=== PATIENT | female | born 1940 | race Caucasian/White ===

== ENCOUNTER 2021-09-05 13:12 | Inpatient (IN) ==
[2021-09-05] MEDS ORDERED: Furosemide 40 MG TABLET PO PRN (16:48)
[2021-09-05] MEDS ORDERED: diazePAM 2 MG TABLET PO PRN (16:48)
[2021-09-05] MEDS ORDERED: Dextrose 4 GM Chewable Tablets PO PRN ×2 (16:53)
[2021-09-05] MEDS ORDERED: *HR* Dextrose 50 % in Water (Syg) 50 ML SYRINGE IVP PRN (16:53)
[2021-09-05] MEDS ORDERED: D5% in Water 1,000 ML IVC PRN (16:53)
[2021-09-05] MEDS: carvediloL 6.25 MG TABLET PO SCH (18:43)
[2021-09-05] MEDS ORDERED: Insulin DETEMIR 100 UNIT/ML per UNIT SUBQ ONE (21:00)
[2021-09-05] MEDS: Budesonide/Formoterol 160/4.5 1 PUFF INH IH SCH (22:02)
[2021-09-05] MEDS: Apixaban 5 MG TABLET PO SCH (22:17)
[2021-09-05] MEDS: Gabapentin 300 MG CAPSULE PO SCH (22:17)
[2021-09-05] MEDS: Insulin LISPRO 300 UNITS/3 ML VIAL SUBQ SCH (22:36)
[2021-09-06] MEDS: Insulin LISPRO 300 UNITS/3 ML VIAL SUBQ SCH ×4 (08:22→20:53)
[2021-09-06] MEDS: *HR* Amiodarone 200 MG TABLET PO SCH (08:26)
[2021-09-06] MEDS: Venlafaxine XR (24 HR) 75 MG CAP.ER.24H PO SCH (08:26)
[2021-09-06] MEDS: carvediloL 6.25 MG TABLET PO SCH ×2 (08:26→17:00)
[2021-09-06] MEDS: Cholecalciferol (D-3) 1,000 UNIT (25MCG) TABLET PO SCH (08:27)
[2021-09-06] MEDS: Apixaban 5 MG TABLET PO SCH ×2 (08:27→20:53)
[2021-09-06] MEDS: Cyanocobalamin (B-12) 1,000 MCG TABLET PO SCH (08:27)
[2021-09-06] MEDS: Linaclotide [Linzess] 145 MCG Capsule PO SCH (08:28)
[2021-09-06 08:51] LABS: Basophils # 0.1 K/mcL (0.0-0.2); Eosinophils # 0.3 K/mcL (0.0-0.6); Eosinophils % 4.8 %; Hemoglobin 12.1 g/dL (11.5-15.4); Immature Granulocytes % 0.4 % (0-4); Lymphocytes % 38.4 %; Mean Corpuscular HGB Conc 31.8 g/dL (31.6-35.5); Mean Corpuscular Hemoglobin 31.8 pg (28.0-33.3); Mean Platelet Volume 11.2 fL (9.4-12.4); Monocytes # 0.5 K/mcL (0.0-1.3); Monocytes % 9.4 %; Neutrophils # 2.4 K/mcL (1.6-8.9); Red Cell Distribution Width 13.9 % (11.5-14.5); White Blood Count 5.2 K/mcL (4.3-11.1)
[2021-09-06 08:54] LABS: Platelet Count 96 K/mcL (140-400)
[2021-09-06] MEDS: Budesonide/Formoterol 160/4.5 1 PUFF INH IH SCH ×2 (09:23→22:24)
[2021-09-06] MEDS: Gabapentin 300 MG CAPSULE PO SCH (20:52)
[2021-09-06] MEDS: Insulin DETEMIR 100 UNIT/ML X5UNITS SUBQ SCH (20:53)
[2021-09-07] MEDS: Insulin LISPRO 300 UNITS/3 ML VIAL SUBQ SCH ×4 (08:05→19:44)
[2021-09-07] MEDS: Cholecalciferol (D-3) 1,000 UNIT (25MCG) TABLET PO SCH (08:12)
[2021-09-07] MEDS: Cyanocobalamin (B-12) 1,000 MCG TABLET PO SCH (08:12)
[2021-09-07] MEDS: Venlafaxine XR (24 HR) 75 MG CAP.ER.24H PO SCH (08:13)
[2021-09-07] MEDS: Linaclotide [Linzess] 145 MCG Capsule PO SCH (08:13)
[2021-09-07] MEDS: *HR* Amiodarone 200 MG TABLET PO SCH (08:13)
[2021-09-07] MEDS: carvediloL 6.25 MG TABLET PO SCH ×2 (08:13→17:25)
[2021-09-07] MEDS: Apixaban 5 MG TABLET PO SCH ×2 (08:13→19:43)
[2021-09-07 08:40] LABS: Basophils # 0.1 K/mcL (0.0-0.2); Basophils % 1.2 %; Eosinophils # 0.3 K/mcL (0.0-0.6); Hematocrit 38.3 % (35.3-44.9); Hemoglobin 12.2 g/dL (11.5-15.4); Immature Granulocytes % 0.4 % (0-4); Lymphocytes # 1.9 K/mcL (0.6-4.6); Lymphocytes % 38.3 %; Mean Corpuscular HGB Conc 31.9 g/dL (31.6-35.5); Mean Corpuscular Hemoglobin 31.9 pg (28.0-33.3); Mean Corpuscular Volume 100.3 fL (83.0-100.0); Mean Platelet Volume 11.4 fL (9.4-12.4); Monocytes # 0.5 K/mcL (0.0-1.3); Monocytes % 10.3 %; Neutrophils # 2.2 K/mcL (1.6-8.9); Red Blood Count 3.82 M/mcL (3.82-4.97); Red Cell Distribution Width 14.1 % (11.5-14.5); Segmented Neutrophils % 43.8 %
[2021-09-07 08:41] LABS: Platelet Count 97 K/mcL (140-400)
[2021-09-07 08:55] LABS: Calcium 9.6 mg/dL (8.6-10.3)
[2021-09-07] MEDS: Budesonide/Formoterol 160/4.5 1 PUFF INH IH SCH ×2 (09:41→22:13)
[2021-09-07] MEDS: Gabapentin 300 MG CAPSULE PO SCH (19:43)
[2021-09-07] MEDS: Insulin DETEMIR 100 UNIT/ML X5UNITS SUBQ SCH (19:43)
[2021-09-08] MEDS: Insulin LISPRO 300 UNITS/3 ML VIAL SUBQ SCH ×4 (07:43→21:21)
[2021-09-08] MEDS: Venlafaxine XR (24 HR) 75 MG CAP.ER.24H PO SCH (08:16)
[2021-09-08] MEDS: *HR* Amiodarone 200 MG TABLET PO SCH (08:16)
[2021-09-08] MEDS: Acetaminophen 325 MG TABLET PO PRN (08:16)
[2021-09-08] MEDS: Cholecalciferol (D-3) 1,000 UNIT (25MCG) TABLET PO SCH (08:17)
[2021-09-08] MEDS: Apixaban 5 MG TABLET PO SCH ×2 (08:17→21:18)
[2021-09-08] MEDS: Linaclotide [Linzess] 145 MCG Capsule PO SCH (08:17)
[2021-09-08] MEDS: carvediloL 6.25 MG TABLET PO SCH ×2 (08:17→18:16)
[2021-09-08] MEDS: Cyanocobalamin (B-12) 1,000 MCG TABLET PO SCH (08:17)
[2021-09-08] MEDS: Budesonide/Formoterol 160/4.5 1 PUFF INH IH SCH ×2 (08:34→22:07)
[2021-09-08] MEDS: traZODone 50 MG TABLET PO PRN (21:17)
[2021-09-08] MEDS: Gabapentin 300 MG CAPSULE PO SCH (21:18)
[2021-09-08] MEDS: Insulin DETEMIR 100 UNIT/ML X5UNITS SUBQ SCH (21:19)
[2021-09-09] MEDS: Cholecalciferol (D-3) 1,000 UNIT (25MCG) TABLET PO SCH (07:44)
[2021-09-09] MEDS: *HR* Amiodarone 200 MG TABLET PO SCH (07:44)
[2021-09-09] MEDS: Apixaban 5 MG TABLET PO SCH ×2 (07:45→20:29)
[2021-09-09] MEDS: carvediloL 6.25 MG TABLET PO SCH ×2 (07:45→16:55)
[2021-09-09] MEDS: Venlafaxine XR (24 HR) 75 MG CAP.ER.24H PO SCH (07:45)
[2021-09-09] MEDS: Cyanocobalamin (B-12) 1,000 MCG TABLET PO SCH (07:45)
[2021-09-09] MEDS: Insulin LISPRO 300 UNITS/3 ML VIAL SUBQ SCH ×4 (07:45→20:27)
[2021-09-09] MEDS: Linaclotide [Linzess] 145 MCG Capsule PO SCH (07:46)
[2021-09-09] MEDS: Budesonide/Formoterol 160/4.5 1 PUFF INH IH SCH ×2 (08:18→22:33)
[2021-09-09] MEDS: Gabapentin 300 MG CAPSULE PO SCH (20:28)
[2021-09-09] MEDS: Insulin DETEMIR 100 UNIT/ML X5UNITS SUBQ SCH (20:28)
[2021-09-09] MEDS: traZODone 50 MG TABLET PO PRN (20:29)
[2021-09-10] MEDS: Venlafaxine XR (24 HR) 75 MG CAP.ER.24H PO SCH (08:16)
[2021-09-10] MEDS: Cholecalciferol (D-3) 1,000 UNIT (25MCG) TABLET PO SCH (08:18)
[2021-09-10] MEDS: Insulin LISPRO 300 UNITS/3 ML VIAL SUBQ SCH ×4 (08:18→21:26)
[2021-09-10] MEDS: Apixaban 5 MG TABLET PO SCH ×2 (08:18→21:25)
[2021-09-10] MEDS: Cyanocobalamin (B-12) 1,000 MCG TABLET PO SCH (08:18)
[2021-09-10] MEDS: *HR* Amiodarone 200 MG TABLET PO SCH (08:18)
[2021-09-10] MEDS: carvediloL 6.25 MG TABLET PO SCH ×2 (08:18→17:39)
[2021-09-10] MEDS: Linaclotide [Linzess] 145 MCG Capsule PO SCH (08:53)
[2021-09-10] MEDS: Budesonide/Formoterol 160/4.5 1 PUFF INH IH SCH ×2 (09:52→20:37)
[2021-09-10 14:20] LABS: Bilirubin,Urine Negative (Negative); Blood,Urine Moderate (Negative); Clarity,Urine Clear (Clear); Color,Urine Yellow (Yellow); Glucose,Urine (UA) 100 mg/dL (Normal); Ketones,Urine Negative (Negative); Leukocyte Esterase,Urine Trace (Negative); Nitrite,Urine Negative (Negative); PH,Urine 5.5 pH Units (5.0-8.0); Protein,Urine Trace mg/dL (Neg-Trace); Specific Gravity,Urine 1.015 (1.010-1.025); Urobilinogen,Urine Normal (Normal)
[2021-09-10 14:39] LABS: Bacteria,Urine Few per hpf (None-Few); Mucus,Urine Few per lpf (None-Few); Squamous Epithelial Cell,Urine Few per hpf (None-Few); Transitional Epi Cells,Urine Few per hpf (None-Few)
[2021-09-10] MEDS: Cefdinir 300 MG CAPSULE PO SCH (17:39)
[2021-09-10] MEDS ORDERED: Cefdinir 300 MG CAPSULE PO SCH (21:00)
[2021-09-10] MEDS: Gabapentin 300 MG CAPSULE PO SCH (21:24)
[2021-09-10] MEDS: traZODone 50 MG TABLET PO PRN (21:25)
[2021-09-10] MEDS: Insulin DETEMIR 100 UNIT/ML X5UNITS SUBQ SCH (21:25)
[2021-09-11] MEDS: Insulin LISPRO 300 UNITS/3 ML VIAL SUBQ SCH ×4 (07:48→20:39)
[2021-09-11] MEDS: Cholecalciferol (D-3) 1,000 UNIT (25MCG) TABLET PO SCH (07:50)
[2021-09-11] MEDS: Cefdinir 300 MG CAPSULE PO SCH ×2 (07:51→20:36)
[2021-09-11] MEDS: Apixaban 5 MG TABLET PO SCH ×2 (07:51→20:36)
[2021-09-11] MEDS: Cyanocobalamin (B-12) 1,000 MCG TABLET PO SCH (07:52)
[2021-09-11] MEDS: carvediloL 6.25 MG TABLET PO SCH ×2 (07:52→17:21)
[2021-09-11] MEDS: Venlafaxine XR (24 HR) 75 MG CAP.ER.24H PO SCH (07:52)
[2021-09-11] MEDS: *HR* Amiodarone 200 MG TABLET PO SCH (07:52)
[2021-09-11] MEDS: Linaclotide [Linzess] 145 MCG Capsule PO SCH (07:54)
[2021-09-11] MEDS: Budesonide/Formoterol 160/4.5 1 PUFF INH IH SCH ×2 (08:41→20:53)
[2021-09-11] MEDS ORDERED: Fluconazole 150 MG TABLET PO ONE ×2 (09:37→12:15)
[2021-09-11] MEDS: Sennosides/Docusate Sodium TABLET PO SCH ×2 (17:17→20:36)
[2021-09-11] MEDS: traZODone 50 MG TABLET PO PRN (20:37)
[2021-09-11] MEDS: Gabapentin 300 MG CAPSULE PO SCH (20:38)
[2021-09-11] MEDS: Insulin DETEMIR 100 UNIT/ML X5UNITS SUBQ SCH (20:39)
[2021-09-12 07:00] LABS: Hematocrit 33.8 % (35.3-44.9); Hemoglobin 10.7 g/dL (11.5-15.4); Mean Corpuscular HGB Conc 31.7 g/dL (31.6-35.5); Mean Corpuscular Hemoglobin 32.1 pg (28.0-33.3); Mean Corpuscular Volume 101.5 fL (83.0-100.0); Mean Platelet Volume 11.7 fL (9.4-12.4); Red Blood Count 3.33 M/mcL (3.82-4.97); Red Cell Distribution Width 14.4 % (11.5-14.5); White Blood Count 5.4 K/mcL (4.3-11.1)
[2021-09-12 07:16] LABS: Platelet Count 97 K/mcL (140-400)
[2021-09-12 07:19] LABS: Calcium 9.5 mg/dL (8.6-10.3); Potassium 4.2 mEq/L (3.5-5.1)
[2021-09-12] MEDS: Cefdinir 300 MG CAPSULE PO SCH (08:11)
[2021-09-12] MEDS: Cholecalciferol (D-3) 1,000 UNIT (25MCG) TABLET PO SCH (08:11)
[2021-09-12] MEDS: Apixaban 5 MG TABLET PO SCH ×2 (08:11→20:10)
[2021-09-12] MEDS: carvediloL 6.25 MG TABLET PO SCH ×2 (08:11→17:04)
[2021-09-12] MEDS: Sennosides/Docusate Sodium TABLET PO SCH ×2 (08:11→20:10)
[2021-09-12] MEDS: Venlafaxine XR (24 HR) 75 MG CAP.ER.24H PO SCH (08:11)
[2021-09-12] MEDS: Cyanocobalamin (B-12) 1,000 MCG TABLET PO SCH (08:11)
[2021-09-12] MEDS: *HR* Amiodarone 200 MG TABLET PO SCH (08:11)
[2021-09-12] MEDS: Insulin LISPRO 300 UNITS/3 ML VIAL SUBQ SCH ×4 (08:12→20:08)
[2021-09-12] MEDS: Linaclotide [Linzess] 145 MCG Capsule PO SCH (08:38)
[2021-09-12] MEDS: Budesonide/Formoterol 160/4.5 1 PUFF INH IH SCH ×2 (09:35→21:34)
[2021-09-12] MEDS: Acetaminophen 325 MG TABLET PO PRN (12:22)
[2021-09-12] MEDS: Insulin DETEMIR 100 UNIT/ML X5UNITS SUBQ SCH (20:09)
[2021-09-12] MEDS: Gabapentin 300 MG CAPSULE PO SCH (20:09)
[2021-09-12] MEDS: Doxycycline 100 MG CAPSULE PO SCH (20:11)
[2021-09-13] MEDS: Sennosides/Docusate Sodium TABLET PO SCH ×2 (08:21→21:58)
[2021-09-13] MEDS: Doxycycline 100 MG CAPSULE PO SCH ×2 (08:21→21:58)
[2021-09-13] MEDS: Apixaban 5 MG TABLET PO SCH ×2 (08:21→21:58)
[2021-09-13] MEDS: Cholecalciferol (D-3) 1,000 UNIT (25MCG) TABLET PO SCH (08:22)
[2021-09-13] MEDS: *HR* Amiodarone 200 MG TABLET PO SCH (08:22)
[2021-09-13] MEDS: Insulin LISPRO 300 UNITS/3 ML VIAL SUBQ SCH ×4 (08:22→22:00)
[2021-09-13] MEDS: Venlafaxine XR (24 HR) 75 MG CAP.ER.24H PO SCH (08:22)
[2021-09-13] MEDS: carvediloL 6.25 MG TABLET PO SCH ×2 (08:22→17:16)
[2021-09-13] MEDS: Cyanocobalamin (B-12) 1,000 MCG TABLET PO SCH (08:22)
[2021-09-13] MEDS: Linaclotide [Linzess] 145 MCG Capsule PO SCH (08:23)
[2021-09-13] MEDS: Insulin DETEMIR 100 UNIT/ML X5UNITS SUBQ SCH ×2 (08:26→22:12)
[2021-09-13] MEDS: Budesonide/Formoterol 160/4.5 1 PUFF INH IH SCH ×2 (10:07→20:59)
[2021-09-13] MEDS: Nystatin Ointment 15 GM TUBE TP SCH ×3 (14:09→21:59)
[2021-09-13] MEDS: traZODone 50 MG TABLET PO PRN (21:58)
[2021-09-13] MEDS: Gabapentin 300 MG CAPSULE PO SCH (21:59)
[2021-09-14] MEDS: Budesonide/Formoterol 160/4.5 1 PUFF INH IH SCH ×2 (07:52→20:46)
[2021-09-14] MEDS: Insulin LISPRO 300 UNITS/3 ML VIAL SUBQ SCH ×4 (08:00→20:08)
[2021-09-14] MEDS: Cholecalciferol (D-3) 1,000 UNIT (25MCG) TABLET PO SCH (09:52)
[2021-09-14] MEDS: Venlafaxine XR (24 HR) 75 MG CAP.ER.24H PO SCH (09:52)
[2021-09-14] MEDS: *HR* Amiodarone 200 MG TABLET PO SCH (09:52)
[2021-09-14] MEDS: carvediloL 6.25 MG TABLET PO SCH ×2 (09:53→16:59)
[2021-09-14] MEDS: Cyanocobalamin (B-12) 1,000 MCG TABLET PO SCH (09:53)
[2021-09-14] MEDS: Doxycycline 100 MG CAPSULE PO SCH ×2 (09:53→20:10)
[2021-09-14] MEDS: Sennosides/Docusate Sodium TABLET PO SCH ×2 (09:53→20:09)
[2021-09-14] MEDS: Apixaban 5 MG TABLET PO SCH ×2 (09:54→20:13)
[2021-09-14] MEDS: Insulin DETEMIR 100 UNIT/ML X5UNITS SUBQ SCH ×2 (09:54→20:09)
[2021-09-14] MEDS: Nystatin Ointment 15 GM TUBE TP SCH ×4 (09:55→23:02)
[2021-09-14] MEDS: Linaclotide [Linzess] 145 MCG Capsule PO SCH (10:01)
[2021-09-14] MEDS: Gabapentin 300 MG CAPSULE PO SCH (20:09)
[2021-09-14] MEDS: Acetaminophen 325 MG TABLET PO PRN (20:13)
[2021-09-15] MEDS: Insulin LISPRO 300 UNITS/3 ML VIAL SUBQ SCH ×4 (07:18→20:57)
[2021-09-15] MEDS: Cyanocobalamin (B-12) 1,000 MCG TABLET PO SCH (07:33)
[2021-09-15] MEDS: Cholecalciferol (D-3) 1,000 UNIT (25MCG) TABLET PO SCH (07:33)
[2021-09-15] MEDS: Apixaban 5 MG TABLET PO SCH ×2 (07:33→20:55)
[2021-09-15] MEDS: Venlafaxine XR (24 HR) 75 MG CAP.ER.24H PO SCH (07:34)
[2021-09-15] MEDS: carvediloL 6.25 MG TABLET PO SCH ×2 (07:34→16:32)
[2021-09-15] MEDS: Sennosides/Docusate Sodium TABLET PO SCH ×2 (07:34→20:56)
[2021-09-15] MEDS: Doxycycline 100 MG CAPSULE PO SCH ×2 (07:34→20:55)
[2021-09-15] MEDS: *HR* Amiodarone 200 MG TABLET PO SCH (07:34)
[2021-09-15] MEDS: Acetaminophen 325 MG TABLET PO PRN (07:35)
[2021-09-15] MEDS: Nystatin Ointment 15 GM TUBE TP SCH ×4 (07:36→20:59)
[2021-09-15] MEDS: Linaclotide [Linzess] 145 MCG Capsule PO SCH (07:36)
[2021-09-15] MEDS: Budesonide/Formoterol 160/4.5 1 PUFF INH IH SCH ×2 (07:50→22:00)
[2021-09-15] MEDS: Insulin DETEMIR 100 UNIT/ML X5UNITS SUBQ SCH ×2 (11:57→20:56)
[2021-09-15 19:25] VITALS: PULSE 60
[2021-09-15] MEDS: Gabapentin 300 MG CAPSULE PO SCH (20:56)
[2021-09-16 07:53] VITALS: BP 119/62; TEMP 97.9
[2021-09-16] MEDS: Budesonide/Formoterol 160/4.5 1 PUFF INH IH SCH (07:53)
[2021-09-16 07:56] VITALS: RESP 18; O2SAT 94
[2021-09-16] MEDS: Insulin LISPRO 300 UNITS/3 ML VIAL SUBQ SCH ×2 (09:19→11:50)
[2021-09-16] MEDS: Cholecalciferol (D-3) 1,000 UNIT (25MCG) TABLET PO SCH (09:20)
[2021-09-16] MEDS: carvediloL 6.25 MG TABLET PO SCH (09:20)
[2021-09-16] MEDS: Acetaminophen 325 MG TABLET PO PRN (09:20)
[2021-09-16] MEDS: Apixaban 5 MG TABLET PO SCH (09:21)
[2021-09-16] MEDS: Cyanocobalamin (B-12) 1,000 MCG TABLET PO SCH (09:21)
[2021-09-16] MEDS: Insulin DETEMIR 100 UNIT/ML X5UNITS SUBQ SCH (09:21)
[2021-09-16] MEDS: *HR* Amiodarone 200 MG TABLET PO SCH (09:21)
[2021-09-16] MEDS: Nystatin Ointment 15 GM TUBE TP SCH (09:29)
[2021-09-16] MEDS: Doxycycline 100 MG CAPSULE PO SCH (09:32)
[2021-09-16] MEDS: Linaclotide [Linzess] 145 MCG Capsule PO SCH (09:36)
[2021-09-16] MEDS: Sennosides/Docusate Sodium TABLET PO SCH (09:42)
[2021-09-16] MEDS: Venlafaxine XR (24 HR) 75 MG CAP.ER.24H PO SCH (09:43)
[2021-09-16 14:04] LABS: Hematocrit 36.5 % (35.3-44.9); Hemoglobin 11.5 g/dL (11.5-15.4); Mean Corpuscular HGB Conc 31.5 g/dL (31.6-35.5); Mean Corpuscular Hemoglobin 32.7 pg (28.0-33.3); Mean Corpuscular Volume 103.7 fL (83.0-100.0); Mean Platelet Volume 11.5 fL (9.4-12.4); Platelet Count 125 K/mcL (140-400); Red Blood Count 3.52 M/mcL (3.82-4.97); Red Cell Distribution Width 15.1 % (11.5-14.5); White Blood Count 6.5 K/mcL (4.3-11.1)
== END 2021-09-16 14:27 | disposition home health service (06) | DRG 644 ==
LOC: INPPIK 17:44
PROVIDERS: ADMIT Family Medicine; ATTEND Family Medicine